=== PATIENT | male | born 1985 | race Caucasian/White ===

== ENCOUNTER 2024-04-07 17:51 | Emergency (ER) | payer SELFPAY ==
[~2024-04-07] VITALS: Ht 180.3 cm; Wt 100.0 kg
[2024-04-07 17:58] VITALS: BP 145/98; PULSE 129; RESP 18; TEMP 37; O2SAT 98
[2024-04-07 20:32] LABS: BASOPHILS % 0.4 % (0.0-2.0); HEMATOCRIT. 44.2 % (42.0-52.0); HEMOGLOBIN. 14.7 g/dL (14.0-18.0); LYMPHOCYTES % 21.1 % (20.0-50.0); MEAN CORPUSCULAR HGB CONC 33.3 g/dL (31.0-37.0); MONOCYTES % 8.2 % (2.0-8.0); NEUTROPHILS % 70.3 % (40.0-76.0); PLATELET 224 x1000/uL (130-400); RED BLOOD CELL COUNT 4.75 mill/uL (4.7-6.1); RED CELL DISTRIBUTION WIDTH 14.4 % (11.6-14.6)
[2024-04-07 20:38] LABS: CHLORIDE 104 mEq/L (98-107); POTASSIUM 3.5 mEq/L (3.5-5.1); SODIUM 137 mEq/L (136-145)
[2024-04-07 20:39] LABS: CALCIUM 9.5 mg/dL (8.7-10.4); CARBON DIOXIDE 24 mEq/L (21-32)
[2024-04-07 20:44] LABS: CREATININE 1.3 mg/dL (0.6-1.3); GLUCOSE 122 mg/dL (70-105); INR 1.1; PARTIAL THROMBOPLASTIN TIME 21.5 sec (23.4-31.0); PROTHROMBIN TIME 11.7 sec (9.6-11.0); UREA NITROGEN BLOOD 14 mg/dL (9-23)
[2024-04-07 20:46] LABS: TROPONIN I HIGH SENSITIVITY 12 ng/L (3.0-53)
[2024-04-07] MEDS: ACETAMINOPHEN 325MG TABLET PO STA (21:09)
[2024-04-07] MEDS: SODIUM CHLORIDE 0.9% 1,000 ML IV ONE (21:10)
[2024-04-07 21:24] LABS: CLARITY URINE CLEAR (CLEAR); COLOR URINE YELLOW (YELLOW); GLUCOSE URINE NEGATIVE (NEGATIVE); KETONES URINE TRACE (NEGATIVE); LEUKOCYTE ESTERASE URINE NEGATIVE (NEGATIVE); NITRITE URINE NEGATIVE (NEGATIVE); OCCULT BLOOD URINE TRACE (NEGATIVE); PROTEIN URINE TRACE (NEGATIVE); SPECIFIC GRAVITY URINE 1.016 (1.005-1.030); UROBILINOGEN URINE 0.2 E.U./dL (0.2-1.0)
[2024-04-07 22:00] LABS: BACTERIA URINE 2+; RBC URINE 0-2 /hpf (0-2); SQUAMOUS EPITHELIAL CELL URINE FEW /lpf (RARE/1+); WBC URINE 0-2 /hpf (0-2)
== END 2024-04-07 22:50 | disposition left against medical advice (07) ==
LOC: ER 17:51
DX: R07.9 Chest pain, unspecified (principal)
CPT/HCPCS: 80048; 81003; 83880; 85025; 85379; 85610; 85730; 84484; 36415; 71045; 93005; 96360; 99285; J7030; Z7610